=== PATIENT | male | born 1980 | race Caucasian/White ===

== ENCOUNTER 2019-02-22 09:36 | Emergency (ER) | payer OTHER ==
[~2019-02-22] VITALS: Ht 167.6 cm; Wt 82.2 kg
[2019-02-22 09:44] VITALS: Ht 167.6 cm; Wt 82.2 kg
[2019-02-22] MEDS ORDERED: SODIUM CHLORIDE 0.9% 1L BAG IV* STA (10:30)
[2019-02-22] MEDS ORDERED: KETOROLAC 15 MG INJ IV STA (10:57)
[2019-02-22] MEDS ORDERED: ACETAMINOPHEN 325 MG TAB PO ONE (11:00)
[2019-02-22] MEDS ORDERED: OSEL75CA23 PO (11:25)
[2019-02-22] MEDS ORDERED: ONDA8TAB9 PO (11:25)
--- NOTE | 2019-02-22 11:25 | ERD ---
ER Documentation Chief Complaint Chief Complaint cough, fever, abd pain,bodyache, left ear pain, n/v x 2 days HPI This is a 38-year-old male with no significant past medical history who is presenting with 2 days of fever, chills, dry nonproductive cough, sore throat, full body aches, bilateral ear pain, nausea with a few episodes of nonbilious nonbloody vomiting. The patient does not endorse any alleviating or exacerbating factors. He was tachycardic and febrile in the triage area. The patient has had no headache or vision changes. The patient does not endorse neck or back pain. The patient denies lightheadedness or dizziness. The patient has had no chest pain or trouble breathing. The patient denies changes to bowel movements or urination. The patient has had no focal deficits. The patient has had no weakness or numbness or tingling to the face or extremities. ROS All systems reviewed and are negative except as per history of present illness. Medications Home Meds Active Scripts Ondansetron Hcl* (Zofran*) 8 Mg Tablet, 8 MG PO Q6H PRN for NAUSEA AND OR V OMITING, #20 TAB Prov:ANA MARIA MCGUIRE MD 02/22/19 Oseltamivir Phosphate* (Tamiflu*) 75 Mg Capsule, 75 MG PO BID for 5 Days, CAP Prov:ANA MARIA MCGUIRE MD 02/22/19 Allergies Allergies: Coded Allergies: No Known Allergy (Unverified , 02/22/19) PMhx/Soc Medical and Surgical Hx: pt denies Medical Hx, pt denies Surgical Hx Hx Alcohol Use: No Hx Substance Use: No Hx Tobacco Use: No Smoking Status: Never smoker Physical Exam Vitals Vital Signs Date Temp Pulse Resp B/P (MAP) Pulse Ox O2 O2 Flow FiO2 Time Delivery Rate 02/22/19 100.1 90 20 143/87 100 Room Air 12:29 (105) 02/22/19 101.4 100 22 144/88 98 Room Air 11:22 (106) 02/22/19 101.4 11:15 02/22/19 101.4 104 22 150/92 98 Room Air 10:36 (111) 02/22/19 102.7 112 20 167/91 95 09:44 (116) Physical Exam Const: No apparent distress, well-developed, well-nourished Head: Normocephalic, Atraumatic Eyes: Normal Conjunctiva. Extraocular movements intact. Pupils equal, round and reactive to light ENT: Normal External Ears, Nose and Mouth. Neck: Full range of motion. No meningismus. Resp: Clear to auscultation bilaterally, No wheezes, rales or rhonchi Cardio: Regular rhythm. Tachycardia. No murmurs, rubs or gallops Abd: Soft, non tender, non distended. Normal bowel sounds Skin: No petechiae or rashes Back: No midline tenderness. No CVA tenderness Ext: No cyanosis, or edema Neur: Awake and alert, oriented 4. Cranial nerves intact. No facial droop. Normal strength, sensation and coordination. Psych: Normal Mood and Affect Result Diagram: 02/22/19 1027 02/22/19 1027 Results 24 hrs Laboratory Tests Test 02/22/19 10:27 02/22/19 11:14 White Blood Count 6.7 10^3/ul Red Blood Count 5.48 10^6/ul Hemoglobin 14.5 g/dl Hematocrit 44.3 % Mean Corpuscular Volume 80.8 fl Mean Corpuscular Hemoglobin 26.5 pg Mean Corpuscular Hemoglobin Concent 32.7 g/dl Red Cell Distribution Width 13.9 % Platelet Count 231 10^3/UL Mean Platelet Volume 8.8 fl Immature Granulocytes % 0.300 % Neutrophils % 71.4 % Lymphocytes % 12.6 % Monocytes % 15.2 % Eosinophils % 0.2 % Basophils % 0.3 % Nucleated Red Blood Cells % 0.0 /100WBC Immature Granulocytes # 0.020 10^3/ul Neutrophils # 4.8 10^3/ul Lymphocytes # 0.8 10^3/ul Monocytes # 1.0 10^3/ul Eosinophils # 0.0 10^3/ul Basophils # 0.0 10^3/ul Nucleated Red Blood Cells # 0.0 10^3/ul Prothrombin Time 13.4 Sec Prothrombin Time Ratio 1.0 INR International Normalized Ratio 1.01 Activated Partial Thromboplast Time 33.4 Sec Sodium Level 139 mmol/L Potassium Level 3.6 mmol/L Chloride Level 104 mmol/L Carbon Dioxide Level 27 mmol/L Anion Gap 8 Blood Urea Nitrogen 10 mg/dl Creatinine 1.12 mg/dl Est Glomerular Filtrat Rate mL/min > 60 mL/min Glucose Level 105 mg/dl Lactic Acid Level 1.1 mmol/L Calcium Level 8.6 mg/dl Total Bilirubin 0.4 mg/dl Direct Bilirubin 0.00 mg/dl Indirect Bilirubin 0.4 mg/dl Aspartate Amino Transf (AST/SGOT) 30 IU/L Alanine Aminotransferase (ALT/SGPT) 41 IU/L Alkaline Phosphatase 80 IU/L Troponin I < 0.012 ng/ml Total Protein 7.2 g/dl Albumin 4.3 g/dl Globulin 2.90 g/dl Albumin/Globulin Ratio 1.48 Urine Color YELLOW Urine Clarity CLEAR Urine pH 5.0 Urine Specific [place] 1.025 Urine Ketones TRACE mg/dL Urine Nitrite NEGATIVE mg/dL Urine Bilirubin NEGATIVE mg/dL Urine Urobilinogen NEGATIVE mg/dL Urine Leukocyte Esterase NEGATIVE Tamara/ul Urine Microscopic RBC 3 /HPF Urine Microscopic WBC 3 /HPF Urine Mucus FEW /HPF Urine Hemoglobin NEGATIVE mg/dL Urine Glucose NEGATIVE mg/dL Urine Total Protein 1+ mg/dl Current Medications Medications Dose Sig/Roma Start Time Status Last (Trade) Ordered Route PRN Stop Time Admin Dose Reason Admin Sodium 2,470 ml BOLUS OVER 2 02/22/19 DC 02/22/19 Chloride HOURS STAT 10:30 02/22/19 10:40 (NS) IV* 10:31 650 mg ONCE ONCE 02/22/19 DC 02/22/19 Acetaminophen PO 11:00 02/22/19 11:15 (Tylenol 11:01 Tab) Ketorolac 15 mg ONCE STAT 02/22/19 DC 02/22/19 Tromethamine IV 10:57 02/22/19 11:15 (Toradol) 10:58 Procedures/MDM MDM The patient's presentation warrants further investigation. Previous medical records, if available, were reviewed. LABS The patient's laboratory testing was obtained and reviewed. No emergent treatment was required unless described below. CBC: No E/o systemic infection or severe anemia or thrombocytopenia Chemistry: No E/o severe acidosis or alkalosis or renal failure or liver disease or diabetic ketoacidosis PT/INR: No E/o significant coagulopathy Lactate: No E/o severe sepsis Troponin: No E/o acute ischemia Influenza: Positive for influenza A EKG EKG read by me: Rate/Rhythm: Tachycardia at a rate of 108 bpm Intervals: Normal [place]: Normal Impression: No evidence of acute ischemia. Sinus tachycardia IMAGING Imaging and Radiology interpretation reviewed. CXR FINDINGS: There is a shallow inspiration accentuating the heart size. Accounting for this, the cardiomediastinal silhouette is within normal limits. There is mild bibasilar subsegmental atelectasis. There is no evidence for focal consolidation. There is no evidence for congestive heart failure. There is no evidence for pneumothorax. The osseous structures are intact. IMPRESSION: Shallow inspiration with mild bibasilar subsegmental atelectasis. Electronically viewed and signed by Denis Anand MD, MD on 02/22/2019 10:42 TREATMENT/DISPOSITION The patient presents with flulike symptoms. The patient's influenza study is positive for influenza A. I do suspect this to be the etiology of his symptoms today. The patient was treated with IV fluids, Tylenol and Toradol in the emergency department. The patient does not have any evidence of endorgan damage. The patient's lactic acid is normal. I do not suspect sepsis. I do not feel the patient requires a full septic workup or admission to the hospital. The patient's symptoms have been ongoing for approximately 48 hours. He may benefit from Tamiflu in an outpatient setting. I do not believe the patient requires antibiotics at this time. DISCHARGE Upon reevaluation of the patient, symptoms have improved. No emergent diagnoses were identified. At this time, I feel that the patient stable for discharge. The patient was instructed to follow-up with a primary care physician in 1-3 days. The patient will be given strict precautions with which to return to the emergency department. Prescriptions: Tamiflu, Zofran The patient's blood pressure was elevated at greater than 120/80 while in the emergency department. The patient was otherwise stable with no evidence of hypertensive urgency or emergency. The patient does not require admission for blood pressure control. I have discussed with the patient the risks of hypertension. I have instructed the patient to return to the ER for any new or worsening symptoms including chest pain, shortness of breath, headache, blurred vision, confusion, nausea, vomiting or LOC. I have advised the patient to follow up with the primary care physician for outpatient monitoring and treatment for hypertension in 1-3 days. Disclaimer: Inadvertent spelling and grammatical errors are likely due to EHR/dictation software use and do not reflect on the overall quality of patient care. Note that the electronic time recorded on this note does not necessarily reflect the actual time of the patient encounter. Departure Diagnosis: Primary Impression: Influenza Additional Impressions: Fever Fever type: unspecified Qualified Codes: R50.9 - Fever, unspecified Tachycardia Cough Myalgia Nausea & vomiting Vomiting type: unspecified Vomiting Intractability: non-intractable Quali fied Codes: R11.2 - Nausea with vomiting, unspecified Condition: Stable Patient Instructions: Influenza (Adult), Sinus Tachycardia, Fever Control (Adult) Additional Instructions: Thank you for for coming to [facility] for your care today. Please ask your nurse or provider if you have questions about your care today and do not leave until all your questions have been answered. Please use any medications given as directed and follow-up with your doctor (or the doctor you were referred to) in the next 1-3 days. If you do not have a primary care doctor you may follow up at the [facility] or [facility] (listed below). You may also use motrin and tylenol as needed for fever and/or pain unless instructed otherwise by your provider or nurse. Indications for more urgent follow-up have been discussed, but you may return to the Emergency Department at ANY time for any worrisome or worsening symptoms. If you have abdominal pain, please know that no test or exam you received is perfect and you should follow up within 8 hours for continued pain. If you had any imaging studies today, such as an X-Ray or CT Scan, these studies will be reviewed later by a radiologist. You will be called if there are important findings that were not identified today, so make sure the contact information you provided at registration is correct. If you received any narcotic pain control medicine today, such as Vicodin, Morphine or Dilaudid, your coordination and judgment may be affected for a number of hours. Please do not drive or operate heavy machinery, and you may want someone to assist you at home. If you were given a prescription for narcotic medication, be aware that it is very addictive- use sparingly and only if necessary. PLEASE SEEK FURTHER EVALUATION AND MANAGEMENT AT YOUR DOCTORS OFFICE WITHIN THE NEXT 1-3 DAYS. IT IS YOUR RESPONSIBILITY TO MAKE AN APPOINTMENT FOR FOLOW-UP CARE. IF YOU HAVE A PRIMARY DOCTOR, PLEASE CALL THEIR OFFICE TO SCHEDULE AN APPOINTMENT FOR FOLLOW UP. IF YOU DO NOT HAVE A PRIMARY DOCTOR YOU CAN CALL OUR PHYSICIAN REFERRAL HOTLINE AT IF YOU CAN NOT AFFORD TO SEE A PHYSICIAN YOU CAN CHOSE FROM THE FOLLOWING [facility]: [facility] [address] [facility] [address] [facility]. [facility] [address] [facility] [address] [facility] [address] [facility]. [facility]. [address] ANA MARIA RAMOS MD Feb 22, 2019 11:24
[2019-02-22 12:29] VITALS: BP 143/87; PULSE 90; RESP 20
== END 2019-02-22 12:32 | disposition home or self-care (01) ==
LOC: E/R 09:36
DX: J10.1 Influenza due to other identified influenza virus with other respiratory manifestations (principal); R00.0 Tachycardia, unspecified; M79.18 Myalgia, other site; R10.9 Unspecified abdominal pain
CPT/HCPCS: 71045; 80053; 81001; 83605; 84484; 85025; 85610; 85730; 87040; 87086; 87400; 96374; J1885; J7030; Z7502; Z7610

== ENCOUNTER 2019-03-08 14:11 | Emergency (ER) | payer OTHER ==
[~2019-03-08] VITALS: Ht 167.6 cm; Wt 78.5 kg
[~2019-03-08 14:11] MED LIST: ONDA8TAB9 PO; OSEL75CA23 PO
[2019-03-08 14:12] VITALS: Ht 167.6 cm; Wt 78.5 kg
[2019-03-08] MEDS ORDERED: ONDANSETRON 4 MG INJ IV STA (14:58)
[2019-03-08] MEDS ORDERED: KETOROLAC 30 MG INJ IV STA (14:58)
[2019-03-08] MEDS ORDERED: SOD CHLORIDE 0.9% 1,000 ML IV STA (14:58)
[2019-03-08] MEDS ORDERED: ACET500C5 PO (15:55)
[2019-03-08] MEDS ORDERED: IBUP800T48 PO (15:55)
[2019-03-08] MEDS ORDERED: ONDA4TAB14 PO (15:55)
[2019-03-08 17:22] VITALS: BP 154/98; PULSE 100; RESP 18
--- NOTE | 2019-03-20 15:57 | ERD ---
ER Documentation Chief Complaint Chief Complaint FEVER WITH N/V/D, BODY ACHES, STOMACHACHE HPI 38-year-old male presenting with abdominal pain with nausea and vomiting and body aches. Patient has had no fevers. Patient states that this pain is been persistent. Denies other medical problems. NKDA. Surgical history denies. Social history denies ROS All systems reviewed and are negative except as per history of present illness. Medications Home Meds Active Scripts Acetaminophen* (Tylophen*) 500 Mg Capsule, 2 CAP PO Q8H PRN for PAIN AND OR ELEVATED TEMP, #20 CAP Prov:SAVAGE ARCE PA-C 03/08/19 Ibuprofen* (Motrin*) 800 Mg Tab, 800 MG PO Q6, #30 TAB Prov:SAVAGE ARCE PA-C 03/08/19 Ondansetron (Ondansetron Odt) 4 Mg Tab.rapdis, 4 MG PO Q6H PRN for NAUSEA AND/OR VOMITING, #10 TAB Prov:SAVAGE ARCE PA-C 03/08/19 Ondansetron Hcl* (Zofran*) 8 Mg Tablet, 8 MG PO Q6H PRN for NAUSEA AND OR VOMITING, #20 TAB Prov:ANA MARIA MCGUIRE MD 02/22/19 Oseltamivir Phosphate* (Tamiflu*) 75 Mg Capsule, 75 MG PO BID for 5 Days, CAP Prov:ANA MARIA MCGUIRE MD 02/22/19 Allergies Allergies: Coded Allergies: No Known Allergy (Unverified , 02/22/19) PMhx/Soc Medical and Surgical Hx: pt denies Surgical Hx Hx Cardiac Disorders: Yes (HTN) Hx Alcohol Use: Yes (occasional) Hx Substance Use: No Hx Tobacco Use: No Smoking Status: Never smoker Physical Exam Physical Exam GENERAL: The patient is well-appearing, well-nourished, in no acute distress CHEST: Clear to auscultation bilaterally. There are no rales, wheezes or rhonchi. HEART: Regular rate and rhythm. No murmurs, clicks, rubs or gallops. No S3 or S4. ABDOMEN: Normal active bowel sounds. No distention. Generalized abdominal abdominal pain on palpation. BACK: No midline or flank tenderness. Results 24 hrs Laboratory Tests Test 03/08/19 15:12 03/08/19 15:19 Urine Color YELLOW Urine Clarity CLOUDY Urine pH 7.0 Urine Specific [place] 1.021 Urine Ketones TRACE mg/dL Urine Nitrite NEGATIVE mg/dL Urine Bilirubin 1+ mg/dL Urine Urobilinogen 1+ mg/dL Urine Leukocyte Esterase NEGATIVE Tamara/ul Urine Microscopic RBC 1 /HPF Urine Microscopic WBC 3 /HPF Urine Amorphous Crystals FEW /HPF Urine Mucus FEW /HPF Urine Hemoglobin 1+ mg/dL Urine Glucose NEGATIVE mg/dL Urine Total Protein 1+ mg/dl White Blood Count 10.4 10^3/ul Red Blood Count 5.54 10^6/ul Hemoglobin 14.8 g/dl Hematocrit 43.4 % Mean Corpuscular Volume 78.3 fl Mean Corpuscular Hemoglobin 26.7 pg Mean Corpuscular Hemoglobin Concent 34.1 g/dl Red Cell Distribution Width 13.4 % Platelet Count 424 10^3/UL Mean Platelet Volume 8.3 fl Immature Granulocytes % 0.200 % Neutrophils % 71.3 % Lymphocytes % 19.1 % Monocytes % 8.9 % Eosinophils % 0.0 % Basophils % 0.5 % Nucleated Red Blood Cells % 0.0 /100WBC Immature Granulocytes # 0.020 10^3/ul Neutrophils # 7.5 10^3/ul Lymphocytes # 2.0 10^3/ul Monocytes # 0.9 10^3/ul Eosinophils # 0.0 10^3/ul Basophils # 0.1 10^3/ul Nucleated Red Blood Cells # 0.0 10^3/ul Sodium Level 140 mmol/L Potassium Level 3.2 mmol/L Chloride Level 96 mmol/L Carbon Dioxide Level 30 mmol/L Anion Gap 14 Blood Urea Nitrogen 7 mg/dl Creatinine 0.83 mg/dl Est Glomerular Filtrat Rate mL/min > 60 mL/min Glucose Level 121 mg/dl Calcium Level 9.6 mg/dl Total Bilirubin 0.6 mg/dl Direct Bilirubin 0.00 mg/dl Indirect Bilirubin 0.6 mg/dl Aspartate Amino Transf (AST/SGOT) 55 IU/L Alanine Aminotransferase (ALT/SGPT) 65 IU/L Alkaline Phosphatase 106 IU/L Total Protein 7.4 g/dl Albumin 4.4 g/dl Globulin 3.00 g/dl Albumin/Globulin Ratio 1.46 Lipase 69 U/L Current Medications Medications Dose Sig/Roma Start Time Status Last (Trade) Ordered Route PRN Stop Time Admin Dose Reason Admin Sodium 1,000 ml @ Q1H STAT 03/08/19 DC 03/08/19 Chloride 1,000 mls/hr IV 14:58 15:25 03/08/19 15:57 Ondansetron 4 mg ONCE STAT 03/08/19 DC 03/08/19 HCl (Zofran IV 14:58 15:25 Inj) 03/08/19 15:00 Ketorolac 30 mg ONCE STAT 03/08/19 DC 03/08/19 Tromethamine IV 14:58 15:25 (Toradol) 03/08/19 15:00 Procedures/MDM DIAGNOSTIC IMAGING REPORT Patient: CHANCE JORDAN : 1980 Age: 38 Sex: M MR #: [id number] DOS: 03/08/19 1554 Ordering MD: ANDREW ARCE PA-C Location: [facility] Room/Bed: PROCEDURE: CT abdomen and pelvis without contrast. CLINICAL INDICATION: Abdominal Pain TECHNIQUE: CT scan of the abdomen and pelvis without oral contrast was performed and is reconstructed at 2.5 mm contiguous axial intervals from the dome of the diaphragm to the inferior pubic rami.. The patient was scanned without intravenous contrast. Sagittal and coronal reformatted images were obtained from the axial source images. The calculated radiation dose measures 518th mGy centimeters. The CTDI measures 8.5 mGy. Individualized dose optimization technique was used for the performance of this exam. This included 1. Automated exposure control. 2. Adjustment of the mA and / or kV according to the patient's size. 3. Use of iterative reconstructed technique. DICOM images are available. COMPARISON: None. FINDINGS: The lung bases are clear of any infiltrate or nodule. No effusion is seen. There is a small hiatal hernia. The liver is enlarged measuring 20 cm. It is of normal contour with no mass or ductal dilatation. No gallstones are visualized. No splenic, adrenal or pancreatic abnormalities present. Kidneys are of normal size and contour. No hydronephrosis or mass Is seen. There is a cluster of less than 3 mm stones in the mid and lower pole of the left kidney. Ureters are of normal course and caliber with no stone. No bladder mass or stone is present. Uterus and ovaries appear normal. There is no aneurysm. No adenopathy is present. No bowel mass or obstruction is present. The appendix is normal. No phlegmon, ascites or pneumoperitoneum is visualized. The osseous structures are intact. IMPRESSION: No evidence of obstructive uropathy, diverticulitis or appendicitis. Cluster tiny nonobstructing stones left kidney. Enlarged fatty liver. Small hiatal hernia. DIAGNOSTIC IMAGING REPORT Patient: CHANCE JORDAN : 1980 Age: 38 Sex: M MR #: [id number] DOS: 03/08/19 1458 Ordering MD: ANDREW ARCE PA-C Location: [facility] Room/Bed: PROCEDURE: Right upper quadrant ultrasound CLINICAL INDICATION: Abdominal pain TECHNIQUE: Multiple real-time images were acquired of the patient's abdomen and right retroperitoneum utilizing a high resolution transducer. COMPARISON: None FINDINGS: The liver is increased in echogenicity and measures 19.4 cm. No focal hepatic masses are seen. The gallbladder is physiologically distended. There is no evidence of gallstones, gallbladder wall thickening, or pericholecystic fluid. The intra and extrahepatic bile ducts are normal in caliber. The common bile duct measures 4.6 mm. Pancreas is suboptimally seen Survey views of the right kidney demonstrate no evidence of hydronephrosis or renal calculi. The right kidney measures 10.7 cm. IMPRESSION: 1. No evidence of cholelithiasis or acute cholecystitis. 2. Fatty change of the liver. 3. Mild hepatomegaly MDM: 38-year-old male presenting with abdominal pain. Patient's abdominal exam, blood work and imaging is within normal limits. I will suspicion for acute abdominal emergency. I have low suspicion for dehydration. Patient is discharged with supportive medications and told to follow-up with primary care within 1 to 2 days for close evaluation. Patient is told if symptoms change or worsen to return immediately to the ER. All questions answered at discharge Departure Diagnosis: Primary Impression: Viral illness Condition: Stable Patient Instructions: Viral Syndrome (Adult) Referrals: [facility] YOU HAVE RECEIVED A MEDICAL SCREENING EXAM AND THE RESULTS INDICATE THAT YOU DO NOT HAVE A CONDITION THAT REQUIRES URGENT TREATMENT IN THE EMERGENCY DEPARTMENT. FURTHER EVALUATION AND TREATMENT OF YOUR CONDITION CAN WAIT UNTIL YOU ARE SEEN IN YOUR DOCTORS OFFICE WITHIN THE NEXT 1-2 DAYS. IT IS YOUR RESPONSIBILITY TO MAKE AN APPOINTMENT FOR FOLOW-UP CARE. IF YOU HAVE A PRIMARY DOCTOR --you should call your primary doctor and schedule an appointment IF YOU DO NOT HAVE A PRIMARY DOCTOR YOU CAN CALL OUR PHYSICIAN REFERRAL HOTLINE AT IF YOU CAN NOT AFFORD TO SEE A PHYSICIAN YOU CAN CHOSE FROM THE FOLLOWING [facility] CL[facility] [address] [facility] [address] [facility] [facility] [address] [facility] [address] [facility] [facility] [address] [facility]. [facility]. [address] Additional Instructions: FOLLOW UP WITH YOUR PRIMARY CARE PHYSICIAN TOMORROW.Return to this facility if you are not improving as expected. SAVAGE ARCE PA-C Mar 20, 2019 15:57
== END 2019-03-08 17:22 | disposition home or self-care (01) ==
LOC: FTE 14:11
DX: B34.9 Viral infection, unspecified (principal); I10 Essential (primary) hypertension
CPT/HCPCS: 36415; 74176; 76705; 80053; 81001; 83690; 85025; 87400; 96374; 96375; J1885; J2405; J7030; Z7502